=== PATIENT | male | born 1990 | race Caucasian/White ===

== ENCOUNTER 2017-06-06 23:36 | Emergency (ER) | payer BC, OTHER ==
[~2017-06-06] VITALS: Ht 182.9 cm; Wt 145.1 kg
[2017-06-06 23:46] VITALS: BP 145/81
[2017-06-06] MEDS ORDERED: MUPI15CR TP (23:57)
--- NOTE | 2017-06-06 23:59 | PHYS DOC ---
Past Medical History Past Medical History: No Pertinent History Past Surgical History: No Surgical History Alcohol Use: None Drug Use: None Adult General Chief Complaint Chief Complaint: INSECT BITE [facility] HPI Patient is a 26 year old presents to the emergency department with complaints of an possible insect bite to the left lateral abdominal wall. He states that he awakened this morning with what he thought was a scratch on his abdomen. He states that he cleaned it with peroxide and throughout the day it seems to on deeper. He states it is not painful. It has not been draining. He has no other complaints. Review of Systems Review of Systems Constitutional: Denies fever or chills [] Eyes: Denies change in visual acuity, redness, or eye pain [] HENT: Denies nasal congestion or sore throat [] Respiratory: Denies cough or shortness of breath [] Cardiovascular: No additional information not addressed in HPI [] GI: Denies abdominal pain, nausea, vomiting, bloody stools or diarrhea [] : Denies dysuria or hematuria [] Musculoskeletal: Denies back pain or joint pain [] Integument: Abrasion Neurologic: Denies headache, focal weakness or sensory changes [] Endocrine: Denies polyuria or polydipsia [] Allergies Allergies Allergies Coded Allergies Type Severity Reaction Last Updated Verified No Known Drug Allergies 11/08/15 No Physical Exam Physical Exam Constitutional: Well developed, well nourished, no acute distress, non-toxic appearance. [] Cardiovascular:Heart rate regular rhythm, no murmur [] Lungs & Thorax: Bilateral breath sounds clear to auscultation [] Abdomen: Bowel sounds normal, soft, no tenderness, no masses, no pulsatile masses. [] Skin: Left lateral abdominal wall with a 1.5 cm by half centimeter avulsion. There is no surrounding erythema. There is no discharge. It is nontender. Current Patient Data Vital Signs Vital Signs Date Time Temp Pulse Resp B/P (MAP) Pulse Ox O2 Delivery O2 Flow Rate FiO2 06/06/17 23:46 98.4 106 18 97 Room Air 98.4 EKG EKG [] Radiology/Procedures Radiology/Procedures [] Course & Med Decision Making Course & Med Decision Making Pertinent Labs and Imaging studies reviewed. (See chart for details) [] Dragon Disclaimer Dragon Disclaimer This electronic medical record was generated, in whole or in part, using a voice recognition dictation system. Departure Departure Impression: Primary Impression: Avulsion of soft tissue Disposition: HOME, SELF-CARE Condition: STABLE Referrals: KALA CHERRY MD Patient Instructions: Wound Care, [id number] Scripts Mupirocin Calcium (BACTROBAN CREAM) 15 Gm Cream..g. 1 HARRY TP TID, #30 GM Prov: LISA HELLER APRN 06/06/17 LISA HELLER APRN Jun 06, 2017 23:59
== END 2017-06-07 00:05 | disposition home or self-care (01) ==
LOC: ER 23:36
DX: S31.109A Unspecified open wound of abdominal wall, unspecified quadrant without penetration into peritoneal cavity, initial encounter (principal); X58.XXXA Exposure to other specified factors, initial encounter; Y93.89 Activity, other specified; Y92.89 Other specified places as the place of occurrence of the external cause; Y99.8 Other external cause status
CPT/HCPCS: 99283